=== PATIENT | male | born 1960 | race Caucasian/White ===

== ENCOUNTER 2017-07-17 23:28 | Observation (INO) ==
[2017-07-17] MEDS ORDERED: Albuterol 2.5 MG/3 ML NEBULIZER IH ONE (23:37)
[2017-07-17] MEDS ORDERED: Ipratropium/Albuterol Neb 3 ML IH ONE (23:37)
[2017-07-17] MEDS ORDERED: methylPREDNISolone 125 MG/2 ML VIAL IVP ONE (23:37)
--- NOTE | 2017-07-17 23:41 | Emergency Department Note ---
Disposition Clinical Impression: Acute bronchitis with bronchospasm, Hypoxia Disposition: Admitted As Inpatient Condition: Good Referrals: NONE,PCP [Primary Care Provider] - Forms: ED Satisfaction Letter Time of Disposition: 02:23 URI/Sore Throat HPI - General Chief Complaint: ED Upper Respiratory Infection Stated Complaint: cough, fever, heart palpitations Time Seen by Provider: 07/17/17 23:35 Source: patient Mode of arrival: ambulatory Limitations: no limitations Nursing Notes Reviewed: Yes Vital Signs Reviewed: Yes - History of Present Illness HPI Narrative: 57-year-old white male has been sick 2 weeks with a cough. His cough has been nonproductive. He has had intermittent fever and chills. He has had sharp pain in his chest with coughing. His chest is felt tight. He is gotten short of breath with exertion. He has noted wheezing. He saw his primary care provider early on in the illness and was prescribed Cipro which he is finished. He has not gotten any better. He denies earache or sore throat. No nasal congestion. Pt Subjective Complaint: fever, cough, flu symptoms Onset (ago): week(s) Duration: constant (2) Severity: severe Improves with: nothing Worsens with: other (Coughing) If sputum, description: other (None) Context: multiple patients with similar complaints Associated symptoms: Reports: fever, chills, cough, shortness of breath, other ( Wheezing) Treatments prior to arrival: antibiotics (Cipro), other healthcare encounter for this problem - Related Data Home Medications Medication Instructions Recorded Confirmed Aspirin [Lo-Dose Aspirin EC] 81 mg PO DAILY 07/18/17 07/18/17 Allergies Allergy/AdvReac Type Severity Reaction Status Date / Time No Known Allergies Allergy Verified 07/17/17 23:29 All systems ED: reviewed and negative except as stated. Constitutional: Reports: fever, chills Eyes: Denies: eye discharge ENT ED: Denies: ear pain, throat pain Cardiovascular: Reports: chest pain (Sharp with coughing and deep breathing), palpitations Respiratory: Reports: cough, dyspnea, wheezes. Denies: hemoptysis, sputum production Gastrointestinal: Denies: abdominal pain, nausea, vomiting, diarrhea Genitourinary: Denies: urgency, dysuria, frequency Musculoskeletal: Denies: back pain Integumentary: Denies: rash URI PMH - Past Medical History Medical history: Reports: no medical history Surgical history: Reports: no surgical history Surgical history: Reports: no surgical history Psychiatric history: Reports: no psych history - Social History Smoking Status: Former smoker Alcohol use: Reports: rarely Drug use: Reports: none Physical Exam - General Limitations: no limitations General appearance: alert, in no apparent distress - Head Head exam: atraumatic, normocephalic - Eye Eye exam: Present: PERRL, EOMI. Absent: scleral icterus, conjunctival injection - ENT ENT exam: normal oropharynx, mucous membranes moist, TM's normal bilaterally - Neck Neck exam: Present: normal inspection, full ROM, trachea midline. Absent: tenderness, lymphadenopathy, thyromegaly - Respiratory Respiratory exam: Present: wheezes (Bilateral diffuse expiratory), other ( Decreased breath sounds right base with right basilar rales). Absent: respiratory distress - Cardiovascular Cardiovascular exam: Present: regular rate, normal rhythm, normal heart sounds - Abdominal Exam Abdominal exam: Present: soft, Non-Tender - Extremities Exam Extremities exam: Present: normal inspection, full ROM. Absent: pedal edema, calf tenderness - Neurological Exam Neurological exam: Present: alert, oriented X3, normal gait. Absent: motor sensory deficit - Psychiatric Psychiatric exam: Present: normal affect, normal mood - Skin Skin exam: Present: warm, dry, intact, normal color. Absent: diaphoresis Course - Reevaluation(s) Reevaluation #1: Some improvement in air movement on exam. He still requiring 2 L of oxygen to keep his saturations at 90% and above. We will repeat his hand-held nebulizers and reevaluate to see if admission is not necessary for his hypoxia. Time: 01:10 Reevaluation #2: Accpeted by Dr. Rose for admission. Still has Saturations less than 90% on room air. Moderate wheezing, moving air fair. Time: 02:10 Vital Signs Temperature 98.7 F 07/17/17 23:34 Pulse Rate 93 07/17/17 23:34 Respiratory Rate 18 07/17/17 23:34 Blood Pressure 171/88 07/17/17 23:34 O2 Sat by Pulse Oximetry 99 07/17/17 23:34 Temperature 98.7 F 07/17/17 23:34 Pulse Rate 93 07/17/17 23:34 Respiratory Rate 12 07/18/17 01:25 Blood Pressure 125/73 07/18/17 01:25 O2 Sat by Pulse Oximetry 88 07/18/17 01:25 Oxygen Delivery Oxygen Delivery Room Air Upper Respiratory Infection - MDM Narrative Medical decision making narrative: No radiographic evidence of pneumonia. Clinically he has a bronchitis with bronchospasm with hypoxia. He has had some improvement with nebulizers and Solu -Medrol but his O2 saturations are too low to be discharged to home. He will require submental oxygen, and admission for further treatment. - Differential Diagnosis Differential Diagnosis: Likely: upper respiratory infection, sinusitis, other viral infection, bronchitis, influenza, pharyngitis, pneumonia - Lab Data Lab results reviewed: Yes I reviewed the patient's lab results. Result diagrams: 07/17/17 23:55 07/17/17 23:55 Lab Results 07/17/17 07/17/17 07/17/17 Range/Units 23:55 23:55 23:55 WBC 9.9 (4.3-11.1) K/mcL RBC 4.75 (4.19-5.50) M/mcL Hgb 16.5 (12.9-16.9) g/dL Hct 41.7 (37.5-50.1) % MCV 87.8 (83.0-100.0) fL MCH 34.7 H (28.0-33.3) pg MCHC 39.6 H (31.6-35.5) g/dL RDW 14.0 (11.5-14.5) % Plt Count 207 (140-400) K/mcL MPV 10.0 (9.4-12.4) fL Immature Gran % 0.5 (0-4) % Seg Neutrophils % 71.6 % Lymphocytes % 16.3 % Monocytes % 8.4 % Eosinophils % 2.8 % Basophils % 0.4 % Neutrophils # 7.1 (1.6-8.9) K/mcL Lymphocytes # 1.6 (0.6-4.6) K/mcL Monocytes # 0.8 (0.0-1.3) K/mcL Eosinophils # 0.3 (0.0-0.6) K/mcL Basophils # 0.0 (0.0-0.2) K/mcL Platelet Estimate Normal (Normal) Ovalocytes 1+ A (Not Present) Sodium 140 (136-145) mEq/L Potassium 3.7 (3.5-4.5) mEq/L Chloride 106 (98-109) mEq/L Carbon Dioxide 23 (19-29) mEq/L BUN 21 (8-26) mg/dL Creatinine 1.05 (0.72-1.25) mg/dL Est GFR ( Amer) > 60 (> 60) Est GFR (Non-Af Amer) > 60 (> 60) BUN/Creatinine Ratio 20 (6-26) Glucose 96 (70-99) mg/dL Calculated Osmolality 293 (280-300) Calcium 9.5 (8.6-10.8) mg/dL Total Bilirubin 1.0 (0.2-1.2) mg/dL AST 36 H (5-34) Units/L ALT 36 (0-55) Units/L Alkaline Phosphatase 69 (38-126) Units/L Troponin I 0.00 (0-0.03) ng/mL B-Natriuretic Peptide (0-100) pg/mL Serum Total Protein 7.3 (6.0-8.3) g/dL Albumin 4.0 (3.5-5.0) g/dL Globulin 3.3 (2.4-3.5) g/dL Albumin/Globulin Ratio 1.2 (1.1-2.2) 07/17/17 Range/Units 23:55 WBC (4.3-11.1) K/mcL RBC (4.19-5.50) M/mcL Hgb (12.9-16.9) g/dL Hct (37.5-50.1) % MCV (83.0-100.0) fL MCH (28.0-33.3) pg MCHC (31.6-35.5) g/dL RDW (11.5-14.5) % Plt Count (140-400) K/mcL MPV (9.4-12.4) fL Immature Gran % (0-4) % Seg Neutrophils % % Lymphocytes % % Monocytes % % Eosinophils % % Basophils % % Neutrophils # (1.6-8.9) K/mcL Lymphocytes # (0.6-4.6) K/mcL Monocytes # (0.0-1.3) K/mcL Eosinophils # (0.0-0.6) K/mcL Basophils # (0.0-0.2) K/mcL Platelet Estimate (Normal) Ovalocytes (Not Present) Sodium (136-145) mEq/L Potassium (3.5-4.5) mEq/L Chloride (98-109) mEq/L Carbon Dioxide (19-29) mEq/L BUN (8-26) mg/dL Creatinine (0.72-1.25) mg/dL Est GFR ( Amer) (> 60) Est GFR (Non-Af Amer) (> 60) BUN/Creatinine Ratio (6-26) Glucose (70-99) mg/dL Calculated Osmolality (280-300) Calcium (8.6-10.8) mg/dL Total Bilirubin (0.2-1.2) mg/dL AST (5-34) Units/L ALT (0-55) Units/L Alkaline Phosphatase (38-126) Units/L Troponin I (0-0.03) ng/mL B-Natriuretic Peptide 21 (0-100) pg/mL Serum Total Protein (6.0-8.3) g/dL Albumin (3.5-5.0) g/dL Globulin (2.4-3.5) g/dL Albumin/Globulin Ratio (1.1-2.2) - Radiology Data Radiology results reviewed: Yes I reviewed the patient's radiology results. Impressions Chest X-Ray 07/18/17 00:01 IMPRESSION: No acute cardiopulmonary abnormality. D/ / Fidencio Saez MD / Fidencio Saez MD Interpreting Provider: Fidencio Saez MD - EKG Data EKG attestation: Yes I reviewed and interpreted this EKG. EKG results narrative: Sinus rhythm, rate of 86, incomplete right bundle branch block, left anterior fascicular block, nonspecific ST-T changes. Rhythm strip shows sinus rhythm with rate of 86, WV interval 163 ms, QRS 101 ms with no other ectopy as interpreted by me. No old EKG available for comparison.
[2017-07-18 00:03] LABS: Basophils % 0.4 %; Eosinophils # 0.3 K/mcL (0.0-0.6); Eosinophils % 2.8 %; Hematocrit 41.7 % (37.5-50.1); Hemoglobin 16.5 g/dL (12.9-16.9); Immature Granulocytes % 0.5 % (0-4); Lymphocytes # 1.6 K/mcL (0.6-4.6); Lymphocytes % 16.3 %; Mean Corpuscular Hemoglobin 34.7 pg (28.0-33.3); Mean Corpuscular Volume 87.8 fL (83.0-100.0); Monocytes # 0.8 K/mcL (0.0-1.3); Monocytes % 8.4 %; Neutrophils # 7.1 K/mcL (1.6-8.9); Platelet Count 207 K/mcL (140-400); Red Blood Count 4.75 M/mcL (4.19-5.50); Segmented Neutrophils % 71.6 %
[2017-07-18 00:24] LABS: Alanine Aminotransferase 36 Units/L (0-55); Albumin/Globulin Ratio 1.2 (1.1-2.2); Alkaline Phosphatase 69 Units/L (38-126); Aspartate Amino Transferase 36 Units/L (5-34); BUN/Creatinine Ratio 20 (6-26); Blood Urea Nitrogen 21 mg/dL (8-26); Calcium 9.5 mg/dL (8.6-10.8); Carbon Dioxide 23 mEq/L (19-29); Chloride 106 mEq/L (98-109); Globulin 3.3 g/dL (2.4-3.5); Glucose 96 mg/dL (70-99); Osmolality,Calculated 293 (280-300); Potassium 3.7 mEq/L (3.5-4.5); Sodium 140 mEq/L (136-145); Total Protein 7.3 g/dL (6.0-8.3); eGFR For African Americans > 60 (> 60); eGFR For Non-African Americans > 60 (> 60)
[2017-07-18 00:25] LABS: Mean Corpuscular HGB Conc 39.6 g/dL (31.6-35.5)
[2017-07-18 00:30] LABS: Ovalocytes 1+ (Not Present); Platelet Estimate Normal (Normal)
[2017-07-18] MEDS ORDERED: Albuterol 2.5 MG/3 ML NEBULIZER IH ONE (01:10)
[2017-07-18] MEDS ORDERED: Ipratropium/Albuterol Neb 3 ML IH ONE (01:10)
[2017-07-18] MEDS ORDERED: *HR* HYDROcodone/Acet 5/325 mg TABLET PO PRN (03:46)
[2017-07-18] MEDS ORDERED: Acetaminophen 325 MG TABLET PO PRN (03:46)
[2017-07-18] MEDS ORDERED: Ondansetron ODT 4 MG TAB.RAPDIS SL PRN (03:46)
[2017-07-18] MEDS ORDERED: Ibuprofen 400 MG TABLET PO PRN (03:46)
[2017-07-18] MEDS ORDERED: Naloxone 0.4 MG/ML INJ IVP PRN (03:46)
[2017-07-18] MEDS: Ipratropium/Albuterol Neb 3 ML IH SCH ×4 (04:20→16:40)
[2017-07-18] MEDS: methylPREDNISolone 125 MG/2 ML VIAL IVP SCH ×2 (08:12→17:29)
[2017-07-18] MEDS: Aspirin Enteric Coated 81 MG Tablet PO SCH (08:12)
[2017-07-18] MEDS ORDERED: Azithromycin 250 MG TABLET PO SCH (09:00)
[2017-07-18] MEDS: Benzonatate 100 MG CAPSULE PO PRN ×2 (14:29→22:26)
--- NOTE | 2017-07-18 16:36 | Internal Med History&Physical ---
Date of Encounter: 07/18/17 Time of Encounter: 16:00 Assessment and Plan (1) Dyspnea Current visit: Yes Status: Acute Suspect due to viral infection. Will order chest CT without IV contrast to further evaluate. Qualifiers: Dyspnea type: shortness of breath Qualified Code(s): R06.02 - Shortness of breath; R06.00 - Dyspnea, unspecified; R06.01 - Orthopnea Internal Medicine - H&P: HPI Chief complaint: Dyspnea and cough Admitted From: Home Plans for Post Hospital Care: Home History of present illness: Mr. Jaime is a 57 year old male who came to the emergency room stating he had progressive dyspnea and cough onset July 03. He received a 10 day prescription for Cipro and 5 day prescription for prednisone 40 mg twice a day on July 05. There was minimal productivity of cough initially but later the cough became nonproductive. He had rust-colored sputum a few days ago but no red blood. He has had fevers up to 102. He was evaluated in emergency room and admitted to [facility] floor for ongoing care needs. He denies previous similar episodes. He denies family members with similar illnesses. He has had no unusual environmental exposures. His closest associated coworker has had a worsening cough over the past few weeks. His respiratory history is significant for having smoked from age [age] up to 1-1/2 packs per day. He has not had PFTs and does not use home oxygen. He reports he ran [employer] 4 weeks ago without dyspnea. Past Med Surg Social Fam HX - Past Medical History Medical history: no medical history Psychiatric history: no psych history - Past Surgical History Surgical History: no surgical history - Social History Smoking Status: Former smoker Smokeless Tobacco Status: No Alcohol use: rarely Drug use: none - Family History Mother Living Status: Age at : 86 Hx Family Cardiac Disorders: Yes (triple A) Hx Family Respiratory Disorders: Yes (copd) Hx Family Cancer: Yes Hx Family Endocrine Disorder: Yes (diabetes type 2) Father Age: 86 Living Status: Still Living Hx Family Cancer: Yes (prostate, brother and father) Internal Medicine - H&P: Meds Aspirin [Lo-Dose Aspirin EC] 81 mg PO DAILY 07/18/17 [History] 3 Allergy/AdvReac Type Severity Reaction Status Date / Time No Known Allergies Allergy Verified 07/17/17 23:29 All Systems PM: A 10-system review of systems was performed and is negative for pertinent findings except as documented above in the HPI. Review of systems: Gen.: He states his weight has fluctuated a few pounds in the past few months based on food intake Cardiovascular: He denies NV heart failure angina DVT or pulmonary embolus. He reports had a heart catheter 2009 which was unremarkable Respiratory: As per history of present illness GI: He denies disorders of his liver gallbladder or exocrine pancreas : He denies hematuria dysuria kidney stones or other kidney bladder prostate disorders. Neurologic: He denies large distribution strokes or seizures. Endocrine: He denies diabetes thyroid disease or hyperlipidemia Hematology/oncology: Denies blood disorders cancers or anemia Psychiatric: He denies anxiety depression other mental health issues Musk skeletal: He denies arthritis gout or other bone joint or muscle disorders - Constitutional Vitals: Temp Pulse Resp BP Pulse Ox 97.4 F L 101 20 155/78 92 07/18/17 10:00 07/18/17 10:00 07/18/17 10:00 07/18/17 10:00 07/18/17 12:37 Exam: Gen.: He is well-developed well-nourished male sitting on the side of bed who appears in minimal respiratory distress at rest HEENT: Head is atraumatic and normocephalic. Eyes: EOMI. There is no scleral icterus. Mouth: Mucosa is moist. Neck: Supple and nontender. There is no thyromegaly or adenopathy noted. Heart: Regular without murmurs gallops or ectopics Lungs: No wheezes crackles or egophony are heard. Abdomen: Soft and nontender. No masses or guarding noted. Extremities: There is no cyanosis edema or clubbing noted. Dorsalis pedis and posttibial pulses are 1-2 over 2 bilaterally. Neurologic: Mental status: He is talkative and a good historian. Cranial nerves : Smile is symmetric. Forehead wrinkles bilaterally. Tongue protrudes midline. EOMI. Motor: There is no pronator drift. Cerebellar: Fair to nose is intact bilaterally. Skin: Warm and dry Internal Med - H&P Results - Labs CBC & Chem 7: 07/17/17 23:55 07/17/17 23:55
[2017-07-18] MEDS: Doxycycline 100 MG in 0.9 % Sodium Chloride Mini Bag 100 ML IVPB SCH (18:50)
[2017-07-18] MEDS: Ipratropium/Albuterol Neb 3 ML IH PRN (20:18)
[2017-07-18] MEDS: Budesonide/Formoterol 160/4.5 MDI IH SCH (20:19)
[2017-07-19] MEDS: Ipratropium/Albuterol Neb 3 ML IH PRN ×5 (04:16→21:42)
[2017-07-19] MEDS: Benzonatate 100 MG CAPSULE PO PRN ×2 (06:15→15:31)
[2017-07-19] MEDS: Doxycycline 100 MG in 0.9 % Sodium Chloride Mini Bag 100 ML IVPB SCH ×2 (06:16→17:36)
[2017-07-19] MEDS: Aspirin Enteric Coated 81 MG Tablet PO SCH (08:36)
[2017-07-19] MEDS: Azithromycin 500 MG in D5% in Water 250 ML IVPB SCH (08:36)
[2017-07-19] MEDS: Budesonide/Formoterol 160/4.5 MDI IH SCH ×2 (08:59→21:42)
--- NOTE | 2017-07-19 10:08 | Internal Med Progress Note ---
Date of Encounter: 07/19/17 Time of Encounter: 09:55 - Assessment and plan (1) Dyspnea Current Visit: Yes Status: Acute Assessment and plan: July 19. Chest CT showed bilateral pneumonia in an atypical infection pattern. He is now on doxycycline and Zithromax IV. We will recheck labs in a.m. Will do a room air oximetry 6 minute walk in a.m. Qualifiers: Dyspnea type: shortness of breath Qualified Code(s): R06.02 - Shortness of breath; R06.00 - Dyspnea, unspecified; R06.01 - Orthopnea - Subjective Interval history: July 19. He has no new complaints. He states he is coughing more today. Dyspnea is minimally improved overall. - Constitutional Vitals: Temp Pulse Resp BP Pulse Ox 97.6 F 99 18 134/78 91 07/19/17 08:18 07/19/17 08:18 07/19/17 08:18 07/19/17 08:18 07/19/17 08:18 Exam: He is resting comfortably in bed. His oxygen saturation varies from 87-91%. Heart rate ranges from 95-105 at rest. I reviewed his medications and lab results. Internal Medicine: Result - Labs CBC & Chem 7: 07/17/17 23:55 07/17/17 23:55 - Impressions Impressions Chest CT 07/18/17 16:30 IMPRESSION: 1. Small nodular and tree-in-bud opacities in the right lower and to a lesser degree right middle and left lower lobes compatible with an atypical pneumonia. 2. Coronary artery atherosclerotic vascular calcifications. 3. 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 D/ / Daljit Daily MD / Daljit Daily MD Interpreting Provider: Daljit Daily MD Consult Discharge Plan - Plan Referrals: NONE,PCP [Primary Care Provider] - 1 week
[2017-07-19] MEDS: Metoprolol XL (24 HR) Succ 25 MG TAB.ER.24H PO SCH (11:03)
[2017-07-19] MEDS: Lactobacillus 1 EACH CAP.SPRINK PO SCH (20:39)
[2017-07-20] MEDS: Ipratropium/Albuterol Neb 3 ML IH PRN ×2 (05:18→10:28)
[2017-07-20] MEDS: Benzonatate 100 MG CAPSULE PO PRN (05:36)
[2017-07-20] MEDS: Doxycycline 100 MG in 0.9 % Sodium Chloride Mini Bag 100 ML IVPB SCH (05:41)
--- NOTE | 2017-07-20 06:13 | Electrocardiograph Report ---
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
[2017-07-20 06:45] VITALS: BP 150/81
[2017-07-20] MEDS: Azithromycin 500 MG in D5% in Water 250 ML IVPB SCH (07:53)
[2017-07-20] MEDS: Lactobacillus 1 EACH CAP.SPRINK PO SCH (07:58)
[2017-07-20] MEDS: Metoprolol XL (24 HR) Succ 25 MG TAB.ER.24H PO SCH (07:58)
[2017-07-20] MEDS: Aspirin Enteric Coated 81 MG Tablet PO SCH (07:58)
[2017-07-20 08:27] LABS: Basophils % 0.3 %; Eosinophils # 0.1 K/mcL (0.0-0.6); Eosinophils % 0.8 %; Hematocrit 41.8 % (37.5-50.1); Hemoglobin 14.6 g/dL (12.9-16.9); Immature Granulocytes % 0.5 % (0-4); Lymphocytes # 2.4 K/mcL (0.6-4.6); Lymphocytes % 22.3 %; Mean Corpuscular HGB Conc 34.9 g/dL (31.6-35.5); Mean Corpuscular Hemoglobin 30.4 pg (28.0-33.3); Mean Corpuscular Volume 87.1 fL (83.0-100.0); Mean Platelet Volume 10.4 fL (9.4-12.4); Monocytes # 0.8 K/mcL (0.0-1.3); Monocytes % 7.4 %; Neutrophils # 7.3 K/mcL (1.6-8.9); Platelet Count 188 K/mcL (140-400); Red Cell Distribution Width 13.3 % (11.5-14.5); Segmented Neutrophils % 68.7 %
--- NOTE | 2017-07-20 10:11 | Discharge Summary ---
Date of Encounter: 07/20/17 Time of Encounter: 09:55 - Discharge Diagnosis (1) Pneumonia Priority: Primary Status: Acute Qualifiers: Pneumonia type: due to unspecified organism Laterality: bilateral Lung location: lower lobe of lung Qualified Code(s): J18.9 - Pneumonia, unspecified organism - Discharge Medications Prescriptions: Albuterol Sulfate [Proair Hfa] 2 puff IH Q4H PRN #1 inh PRN Reason: Dyspnea Azithromycin [Zithromax] 250 mg PO DAILY #5 tablet Benzonatate [Tessalon] 100 mg PO TID #15 capsule Budesonide/Formoterol 160/4.5 [Symbicort 160/4.5] 2 puff IH BIDR #1 hfa.aer.ad Doxycycline 100 mg PO BID #10 capsule Lactobacillus [Culturelle] 1 each PO BID #10 cap.sprink Metoprolol XL (24 HR) Succ [Toprol XL] 25 mg PO DAILY #7 tab.er.24h Home Medications: Aspirin [Lo-Dose Aspirin EC] 81 mg PO DAILY 07/18/17 [History] Albuterol Sulfate [Proair Hfa] 2 puff IH Q4H PRN #1 inh 07/20/17 [Rx] Azithromycin [Zithromax] 250 mg PO DAILY #5 tablet 07/20/17 [Rx] Benzonatate [Tessalon] 100 mg PO TID #15 capsule 07/20/17 [Rx] Budesonide/Formoterol 160/4.5 [Symbicort 160/4.5] 2 puff IH BIDR #1 hfa.aer.ad 07/20/17 [Rx] Doxycycline 100 mg PO BID #10 capsule 07/20/17 [Rx] Lactobacillus [Culturelle] 1 each PO BID #10 cap.sprink 07/20/17 [Rx] Metoprolol XL (24 HR) Succ [Toprol XL] 25 mg PO DAILY #7 tab.er.24h 07/20/17 [Rx ] Allergies/Adverse Reactions: 3 Allergy/AdvReac Type Severity Reaction Status Date / Time No Known Allergies Allergy Verified 07/17/17 23:29 Procedures/tests Complete & Pending: Procedures Performed prior 72 hours Category Date Time Status CT chest wo con [CT] Routine Cat Scan 07/18/17 16:30 Completed Date of admission: 07/18/17 02:33 Primary care physician: Shaun Hernandez D.O. - Patient Status Disposition: Home, Self-Care Condition: Good Functional capacity at discharge: independent ambulation Overall status at discharge: patient is progressing back to baseline - Discharge Instructions Follow Up With: NONE,PCP [Primary Care Provider] - 1 week - Diet and Activity Activity: resume usual activities as tolerated Diet: advance to your usual diet Hospital course: Mr. Jaime is a 57 year old male came to the emergency room stating he had progressive dyspnea and cough onset July 03. He received a 10 day prescription for Cipro and 5 day prescription for prednisone 40 mg twice a day on July 05. There was minimal productivity of cough initially but later the cough became nonproductive. He had rust-colored sputum a few days ago but no red blood. He has had fevers up to 102. He was evaluated in emergency room and admitted to [facility] for ongoing care needs. Initial orders were written by the emergency room physician. I saw him on July 18 and performed a history and physical. A chest CT was done to further evaluate. There were findings consistent with atypical pneumonia seen in the right middle lobe and bilateral lower lobes. He was started on IV doxycycline and Zithromax. Symbicort was also given along with prn albuterol nebs. He had gradual improvement in his symptoms. On July 20 he felt improved enough to be discharged home. He will follow with his PCP Dr. Hernandez tomorrow as scheduled. He will continue with antibiotics and probiotic for 5 additional days at discharge. He was started on Toprol XL 25 mg daily to control heart rate and blood pressure. This will be continued at discharge also. - Time Spent with Patient Total time spent providing and/or coordinating discharge services: - Constitutional Vitals: Temp Pulse Resp BP Pulse Ox 97.4 F L 71 18 150/81 97 07/20/17 06:42 07/20/17 06:42 07/20/17 06:42 07/20/17 06:42 07/20/17 06:42
[2017-07-20 10:12] LABS: BUN/Creatinine Ratio 26 (6-26); Blood Urea Nitrogen 24 mg/dL (8-26); Carbon Dioxide 26 mEq/L (19-29); Chloride 107 mEq/L (98-109); Glucose 82 mg/dL (70-99); Osmolality,Calculated 297 (280-300); Potassium 4.2 mEq/L (3.5-4.5); Sodium 142 mEq/L (136-145); eGFR For African Americans > 60 (> 60); eGFR For Non-African Americans > 60 (> 60)
[2017-07-20] MEDS: Budesonide/Formoterol 160/4.5 MDI IH SCH (10:27)
== END 2017-07-20 10:45 | disposition home or self-care (01) ==
LOC: EMEROOPIK 23:28 → INPPIK 23:28
PROVIDERS: ADMIT Internal Medicine; ATTEND Internal Medicine